=== PATIENT | female | born 1970 | race Caucasian/White ===

== ENCOUNTER 2021-02-17 19:37 | Emergency (ER) | payer OTHER, MEDICAID, SELFPAY ==
[2021-02-17 19:42] VITALS: BP 162/72; PULSE 91; RESP 14; TEMP 36.7; O2SAT 96; BMI 26.4
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
== END 2021-02-17 21:58 | disposition short-term general hospital (02) ==
PROVIDERS: Emergency Provider Emergency Medicine; PCP Family Medicine
DX: T76.21XA Adult sexual abuse, suspected, initial encounter (principal)
CPT/HCPCS: 99284